=== PATIENT | male | born 1975 | race Caucasian/White ===

== ENCOUNTER 2022-05-16 14:16 | Outpatient (CLI) | payer OTHER | END 2022-05-16 14:17 | disposition home or self-care (01) | LOC: TBSIIMAG 14:16 | PROVIDERS: ATTEND Orthopaedic Surgery | DX: S46.211A Strain of muscle, fascia and tendon of other parts of biceps, right arm, initial encounter (principal) ==

== ENCOUNTER 2022-05-18 10:08 | Day surgery (SDC) | payer SELFPAY ==
[2022-05-17 14:37] VITALS: BMI 26.5
[2022-05-18] MEDS ORDERED: Bupivacaine HCl 0.5%/Epinephrine 1:200,000/PF 30 ml Vial ONE (12:36)
[2022-05-18] MEDS ORDERED: Fentanyl 250 MCG/5 ML VIAL ONE (12:59)
[2022-05-18] MEDS ORDERED: HYDROmorphone 2 MG/ML VIAL ONE (13:00)
[2022-05-18] MEDS ORDERED: Lidocaine 1% PF 5 ML VIAL ONE (13:03)
[2022-05-18] MEDS ORDERED: Ondansetron PF 4 MG/2 ML Vial ONE (13:03)
[2022-05-18] MEDS ORDERED: PROPOFOL 200 MG/20 ML VIAL ONE (13:03)
[2022-05-18] MEDS ORDERED: Ketorolac Tromethamine 30 MG/ML VIAL ONE (13:03)
[2022-05-18] MEDS ORDERED: Dexamethasone 20 MG/5 ML VIAL ONE (13:03)
[2022-05-18] MEDS ORDERED: HYDROcodone/Acetaminophen 5/325 mg Tablet ONE (15:10)
[2022-05-18] MEDS ORDERED: diphenhydrAMINE 50 MG/ML VIAL ONE (15:10)
== END 2022-05-18 15:52 | disposition home or self-care (01) ==
LOC: SDC 10:08
PROVIDERS: ATTEND Orthopaedic Surgery
PROC: 0LM30ZZ Reattachment of Right Upper Arm Tendon, Open Approach (ICD-10-PCS; principal; 2022-05-18)
DX: S46.211A Strain of muscle, fascia and tendon of other parts of biceps, right arm, initial encounter (principal); I10 Essential (primary) hypertension; E78.00 Pure hypercholesterolemia, unspecified; Z86.16 Personal history of COVID-19; Z79.899 Other long term (current) drug therapy; X58.XXXA Exposure to other specified factors, initial encounter; Y93.54 Activity, bowling
CPT/HCPCS: 93005; 93010; C1713; J1100; J1170; J1200; J1885; J2405; J2704; J3010